=== PATIENT | female | born 1990 | race American Indian/Alaskan Native ===

== ENCOUNTER 2017-03-30 22:35 | Emergency (ER) | payer MEDICAID ==
[2017-03-31] MEDS ORDERED: TYLENOL ONE (01:18)
[2017-03-31] MEDS ORDERED: TYLENOL PO ONE (01:21)
[2017-03-31 02:24] LABS: Basophils % (Auto) 0.1 % (0.0-1.8); Eosinophils % (Auto) 0.3 % (0.0-4.3); Mean Corpuscular HGB Conc 31 % (30-34); Platelet Count 278 K/mm3 (140-440); Red Blood Count 5.82 M/mm3 (3.65-5.03); Red Cell Distribution Width 14.7 % (13.2-15.2); White Blood Count 14.2 K/mm3 (4.5-11.0)
[2017-03-31 02:26] LABS: Hematocrit 38.6 % (30.3-42.9); Hemoglobin 11.8 gm/dl (10.1-14.3); Mean Corpuscular Hemoglobin 20 pg (28-32); Mean Corpuscular Volume 66 fl (79-97)
[2017-03-31 02:40] LABS: Anion Gap 18 mmol/L; Blood Urea Nitrogen 7 mg/dL (7-17); Calcium 8.5 mg/dL (8.4-10.2); Carbon Dioxide 24 mmol/L (22-30); Chloride 99.2 mmol/L (98-107); Glucose 93 mg/dL (65-100); Potassium 3.4 mmol/L (3.6-5.0); Sodium 138 mmol/L (137-145)
[2017-03-31 04:10] LABS: Bacteria,Urine 1+ /HPF (Negative); Bilirubin,Urine NEG (Negative); Blood,Urine NEG (Negative); Ketones,Urine NEG (Negative); Leukocyte Esterase,Urine LG (Negative); Mucus,Urine 1+ /HPF; Nitrite,Urine NEG (Negative); Protein,Urine <15 mg/dL mg/dL (Negative); Urobilinogen,Urine < 2.0 mg/dL (<2.0)
[2017-03-31 09:32] VITALS: BP 133/93
--- NOTE | 2017-03-31 09:56 | Emergency Department Report ---
HPI - General Chief Complaint: Nausea/Vomiting/Diarrhea Time Seen by Provider: 03/31/17 09:35 - HPI HPI: Patient is a 26-year-old female presents to ED complaining of nausea vomiting that started Thursday. Patient states Thursday she felt slightly nauseated which went away and then Thursday she had another nausea episode. She states she had 2 episodes of vomiting since Thursday. Patient states yesterday she had a couple episodes of nonbloody diarrhea. She states symptoms have resolved today. She admits associated symptoms are generalized muscle aching and fever. She denies abdominal pain, headache, dizziness, blurred vision, trauma, ED Past Medical Hx - Past Medical History Previous Medical History?: Yes Hx Hypertension: Yes - Surgical History Additional Surgical History: - Social History Smoking Status: Never Smoker - Medications Home Medications: Home Medications Medication Instructions Recorded Confirmed Last Taken Type Ondansetron [Zofran TAB] 4 mg PO ONCE #15 tablet 09/16/14 Unknown Rx Amoxicillin [Amoxicillin TAB] 875 mg PO BID #10 tablet 01/09/15 Unknown Rx Gentamicin 0.3% Ophth Soln 2 drops OS Q4H #1 bottle 08/22/15 Unknown Rx Ibuprofen [Motrin 800 MG tab] 800 mg PO ONCE #40 tablet 03/31/17 Unknown Rx Ondansetron [Zofran Odt] 4 mg PO Q8H #20 tab.rapdis 03/31/17 Unknown Rx Sulfamethoxazole/Trimethoprim 1 each PO BID #8 tablet 03/31/17 Unknown Rx [Bactrim DS TAB] ED Review of Systems ROS: Stated complaint: FEVER/HEADACHE Other details as noted in HPI Constitutional: fever. denies: chills Eyes: denies: eye pain, eye discharge, vision change ENT: denies: ear pain, throat pain, dental pain, hearing loss Respiratory: denies: cough, shortness of breath, wheezing Cardiovascular: denies: chest pain, palpitations Endocrine: no symptoms reported Gastrointestinal: nausea, vomiting, diarrhea. denies: abdominal pain, constipation Genitourinary: denies: urgency, dysuria, frequency, hematuria, discharge Musculoskeletal: myalgia. denies: back pain, joint swelling, arthralgia Skin: denies: rash, lesions Neurological: denies: headache, weakness, numbness, paresthesias, confusion Psychiatric: denies: anxiety, depression Hematological/Lymphatic: denies: easy bleeding, easy bruising Physical Exam - Physical Exam Vital Signs: Vital Signs 03/31/17 03/31/17 03/31/17 01:07 01:22 03:23 Temperature 101.0 F H 98.7 F Pulse Rate 105 H 91 H Respiratory 20 20 20 Rate Blood Pressure 135/97 139/91 Blood Pressure [Right] O2 Sat by Pulse 100 100 Oximetry 03/31/17 09:31 Temperature 98.1 F Pulse Rate 84 Respiratory 18 Rate Blood Pressure Blood Pressure 133/93 [Right] O2 Sat by Pulse 100 Oximetry Physical Exam: GENERAL: Alert and oriented x3, no apparent distress, Normal Gait, atraumatic. HEAD: Head is normocephalic and a-traumatic. EARS: symetrical, atraumatic, non tender, ear canal clear and moderate cerumen, tympanic membrance non inflamed. gross auditory nml bilaterally. NOSE: Nose symetrical, Nontender,Nares appeared normal. MOUTH:Mouth is well hydrated and without lesions. Tonsils nonerythematous or swollen, Uvula midline, Tongue not elevated. Mucous membranes are moist. Posterior pharynx clear, no exudate or lesions. Patent airways. NECK: Supple. Non edematous, No lymphadenopathy or thyromegaly. No C-spine tenderness LUNGS: Symetrical with respiration, No wheezing, no rales or crackles, CTAB. HEART: S1, S2 present, regular rate and rhythm without murmur, no rubs, no gallops. Non tender to palpation ABDOMEN: No organomegaly was noted,Positive bowel sounds, soft, and non- distended. . Nontender to palpation on all Quadrants, NO CVA tenderness. NEUROLOGIC: The patient is cooperative with no focal neurologic deficits. Cranial nerves II through XII are grossly intact. Normal speech. SKIN: Warm and dry, No lesions, No ulceration or induration present. ED Course Vital Signs 03/31/17 03/31/17 03/31/17 01:07 01:22 03:23 Temperature 101.0 F H 98.7 F Pulse Rate 105 H 91 H Respiratory 20 20 20 Rate Blood Pressure 135/97 139/91 Blood Pressure [Right] O2 Sat by Pulse 100 100 Oximetry 03/31/17 09:31 Temperature 98.1 F Pulse Rate 84 Respiratory 18 Rate Blood Pressure Blood Pressure 133/93 [Right] O2 Sat by Pulse 100 Oximetry ED Medical Decision Making - Lab Data Result diagrams: 03/31/17 01:52 03/31/17 01:52 Laboratory Results - last 24 hr 03/31/17 03/31/17 03/31/17 01:52 01:52 01:52 WBC 14.2 H RBC 5.82 H Hgb 11.8 Hct 38.6 MCV 66 L MCH 20 L MCHC 31 RDW 14.7 Plt Count 278 Lymph % (Auto) 6.5 L Piatt % (Auto) 4.8 Eos % (Auto) 0.3 Baso % (Auto) 0.1 Lymph # 0.9 L Piatt # 0.7 Eos # 0.0 Baso # 0.0 Seg Neutrophils % 88.3 H Seg Neutrophils # 12.6 H Sodium 138 Potassium 3.4 L Chloride 99.2 Carbon Dioxide 24 Anion Gap 18 BUN 7 Creatinine 0.5 L Estimated GFR > 60 BUN/Creatinine Ratio 14.00 Glucose 93 Calcium 8.5 HCG, Qual Negative Urine Color Urine Turbidity Urine pH Ur Specific [place] Urine Protein Urine Glucose (UA) Urine Ketones Urine Blood Urine Nitrite Urine Bilirubin Urine Urobilinogen Ur Leukocyte Esterase Urine WBC (Auto) Urine RBC (Auto) U Epithel Cells (Auto) Urine Bacteria (Auto) Urine Mucus 03/31/17 03:09 WBC RBC Hgb Hct MCV MCH MCHC RDW Plt Count Lymph % (Auto) [place] % (Auto) Eos % (Auto) Baso % (Auto) Lymph # [place] # Eos # Baso # Seg Neutrophils % Seg Neutrophils # Sodium Potassium Chloride Carbon Dioxide Anion Gap BUN Creatinine Estimated GFR BUN/Creatinine Ratio Glucose Calcium HCG, Qual Urine Color Yellow Urine Turbidity Clear Urine pH 5.0 Ur Specific [place] 1.018 Urine Protein <15 mg/dl Urine Glucose (UA) Neg Urine Ketones Neg Urine Blood Neg Urine Nitrite Neg Urine Bilirubin Neg Urine Urobilinogen < 2.0 Ur Leukocyte Esterase Lg Urine WBC (Auto) 21.0 H Urine RBC (Auto) 5.0 U Epithel Cells (Auto) 8.0 Urine Bacteria (Auto) 1+ Urine Mucus 1+ - Medical Decision Making 26-year-old female presents with a UTI ED course: CBC, CMP, urinalysis, urine tests are ordered. Urinalysis suggest UTI, cannot exclude pyelonephritis due to elevated white blood count Wood patient in ED with Rocephin and discharge him on 3 days trial of antibiotics and pain medication. Discussed findings with patient. Discussed the patient to hydrate, and sates for fever and myalgia relief Discussed follow-up with primary care physician 3-5 days. Discussed with patient his symptoms worsen or new symptoms arise to return to ED Vital signs results are normal, temperature reduced. Patient is not ill-appearing, was very interactive during exam and is in no apparent distress Critical care attestation.: If time is entered above; I have spent that time in minutes in the direct care of this critically ill patient, excluding procedure time. ED Disposition Clinical Impression: UTI (urinary tract infection) Qualifiers: Urinary tract infection type: acute cystitis Hematuria presence: with hematuria Qualified Code(s): N30.01 - Acute cystitis with hematuria Disposition: TO HOME OR SELFCARE Is pt being admited?: No Does the pt Need Aspirin: No Condition: Stable Instructions: Urinary Tract Infection in Women (ED), Acute Pyelonephritis (ED) , Soft Diet (ED), Potassium Content of Foods List (ED), Regular Diet (ED) Prescriptions: Ibuprofen [Motrin 800 MG tab] 800 mg PO ONCE #40 tablet Ondansetron [Zofran Odt] 4 mg PO Q8H #20 tab.rapdis Sulfamethoxazole/Trimethoprim [Bactrim DS TAB] 1 each PO BID #8 tablet Referrals: PRIMARY CARE, [Primary Care Provider] - 3-5 Days [facility] [Outside] - 3-5 Days [facility] [Outside] - 3-5 Days Forms: Work/School Release Form(ED) Time of Disposition: 10:31
[2017-03-31] MEDS ORDERED: XYLOCAINE 1% MPF 5 mL INFILTRATI ONE (09:57)
[2017-03-31] MEDS ORDERED: ROCEPHIN IM ONE (09:57)
[2017-03-31] MEDS ORDERED: MOTRIN PO ONE (09:58)
[2017-03-31] MEDS ORDERED: ZOFRAN ODT PO ONE (10:02)
== END 2017-03-31 10:39 | disposition home or self-care (01) ==
LOC: ED 22:35
DX: N39.0 Urinary tract infection, site not specified (principal); I10 Essential (primary) hypertension
CPT/HCPCS: 36415; 80048; 81001; 84703; 85025; 96372; 99283; J0696; Q0162